=== PATIENT | female | born 1970 | race Caucasian/White ===

== ENCOUNTER 2016-12-12 03:05 | Emergency (ER) | payer OTHER ==
[2016-12-12] MEDS ORDERED: KETOROLAC 60 MG/2 ML VIAL ONE (04:24)
[2016-12-12] MEDS ORDERED: ONDANSETRON ODT 4 MG TABLET ONE (04:24)
[2016-12-12] MEDS ORDERED: ACETAMINOPHEN 325 MG TABLET PO ONE (04:24)
[2016-12-12] MEDS ORDERED: ONDANSETRON ODT 4 MG Prepack 2 TL ONE (05:33)
[2016-12-12] MEDS ORDERED: oxyCODONE/ACET 5/325 Prepack 4 PO ONE (05:33)
== END 2016-12-12 05:45 | disposition home or self-care (01) ==
DX: S06.0X0A Concussion without loss of consciousness, initial encounter (principal); S00.93XA Contusion of unspecified part of head, initial encounter; W20.8XXA Other cause of strike by thrown, projected or falling object, initial encounter; Y92.89 Other specified places as the place of occurrence of the external cause; Y99.0 Civilian activity done for income or pay; G35 Multiple sclerosis
CPT/HCPCS: 1040M; 70450; 96372; 99283; 99284; A9270; Q0162

== ENCOUNTER 2019-02-02 04:56 | Emergency (ER) | payer MEDICAID ==
[2019-02-02] MEDS ORDERED: KETOROLAC 30 MG/ML VIAL IVP STA (05:16)
[2019-02-02] MEDS ORDERED: SODIUM CHLORIDE 0.9% 1,000 ML IV ONE (05:16)
[2019-02-02] MEDS ORDERED: ONDANSETRON 4 MG/2 ML VIAL IVP STA (05:16)
--- NOTE | 2019-02-02 05:21 | ED Physician Documentation ---
PD HPI ABD PAIN - Stated complaint Stated Complaint: ABD PX - Chief complaint Chief Complaint: Abd Pain - History obtained from History obtained from: Patient - History of Present Illness Timing - onset: Last night Timing - duration: Hours (6) Timing - details: Intermittant Pain level max: 10 Pain level now: 4 Quality: Aching, Pain Location: Other (R flank) Improved by: Meds (motrin). No: Eating, Laying still, Vomiting, BM Worsened by: No: Eating, Moving, Breathing, Position, Palpation Associated symptoms: No: Fever, Nausea, Vomiting, Hematemesis, Diarrhea, Constipation, Melena, Hematochezia, Dysuria, Hematuria Similar symptoms before: Diagnosis (kidney stones) Recently seen: Not recently seen Review of Systems Ten Systems: 10 systems reviewed and negative Constitutional: denies: Fever, Chills Ears: denies: Ear pain Nose: denies: Rhinorrhea / runny nose, Congestion Throat: denies: Sore throat Cardiac: denies: Chest pain / pressure Respiratory: denies: Cough, Wheezing GI: denies: Vomiting, Diarrhea : denies: Dysuria Skin: denies: Rash Musculoskeletal: denies: Neck pain, Back pain Neurologic: denies: Headache PD PAST MEDICAL HISTORY - Past Medical History Cardiovascular: Hypertension Psych: Anxiety, Panic attacks - Past Surgical History Past Surgical History: Yes - Present Medications Home Medications: Ambulatory Orders Medication Instructions Recorded Confirmed Lisinopril [Zestril] 5 mg PO ONCE 09/04/13 09/04/13 hydroCHLOROthiazide [Hydrodiuril] 25 mg PO ONCE 09/04/13 09/04/13 Ondansetron Odt [Zofran] 4 mg TL Q6H PRN #10 tablet 02/02/19 - Allergies Allergies/Adverse Reactions: Allergies Allergy/AdvReac Type Severity Reaction Status Date / Time No Known Drug Allergies Allergy Verified 02/02/19 05:10 - Social History Does the pt smoke?: Yes Smoking Status: Current every day smoker Does the pt drink ETOH?: Yes Does the pt have substance abuse?: No - POLST Patient has POLST: No PD ED PE NORMAL - Vitals Vital signs reviewed: Yes - General General: Alert and oriented X 3, No acute distress, Well developed/nourished - HEENT HEENT: PERRL, Moist mucous membranes - Neck Neck: Supple, no meningeal sign - Cardiac Cardiac: RRR, Strong equal pulses - Respiratory Respiratory: No respiratory distress, Clear bilaterally - Abdomen Abdomen: Soft, Non tender, Non distended - Back Back: No CVA TTP, No spinal TTP - Derm Derm: Warm and dry, No rash - Extremities Extremities: No edema, No calf tenderness / cord - Neuro Neuro: Alert and oriented X 3 - Psych Psych: Normal mood, Normal affect Results - Vitals Vitals: Vital Signs - 24 hr 02/02/19 02/02/19 05:00 06:06 Temperature 36.1 C L Heart Rate 88 74 Respiratory 17 16 Rate Blood Pressure 162/97 H 129/80 O2 Saturation 99 100 Oxygen O2 Source Room air - Labs Labs: Laboratory Tests 02/02/19 02/02/19 02/02/19 05:06 05:30 05:30 WBC 10.9 H RBC 4.55 Hgb 13.2 Hct 39.4 MCV 86.6 MCH 29.0 MCHC 33.4 RDW 13.4 Plt Count 367 MPV 8.8 Neut # (Auto) 7.2 H Lymph # (Auto) 2.8 [place] # (Auto) 0.7 Eos # (Auto) 0.2 Baso # (Auto) 0.1 Absolute Nucleated RBC 0.00 Nucleated RBC % 0.0 Sodium 136 Potassium 3.8 Chloride 105 Carbon Dioxide 22 Anion Gap 9.0 BUN 13 Creatinine 0.6 Estimated GFR (MDRD) 106 Glucose 110 H Calcium 8.8 Total Bilirubin 0.8 AST 22 ALT 18 Alkaline Phosphatase 79 Total Protein 7.4 Albumin 4.0 Globulin 3.4 Albumin/Globulin Ratio 1.2 Lipase 44 Urine Color YELLOW Urine Clarity CLEAR Urine pH 5.5 Ur Specific [place] >=1.030 H Urine Protein NEGATIVE Urine Glucose (UA) NEGATIVE Urine Ketones NEGATIVE Urine Occult Blood NEGATIVE Urine Nitrite NEGATIVE Urine Bilirubin NEGATIVE Urine Urobilinogen 0.2 (NORMAL) Ur Leukocyte Esterase NEGATIVE Ur Microscopic Review NOT INDICATED Urine Culture Comments NOT INDICATED - Rads (name of study) CT abd/pelvis Radiology: Prelim report reviewed, EMP read contemporaneously, See rad report (Nonobstructing bilateral renal stones. 2. No ureteral stone or obstructive uropathy seen bilaterally. 3. Appendix appears normal. ) PD MEDICAL DECISION MAKING - ED course Complexity details: reviewed results, re-evaluated patient, considered differential, d/w patient ED course: 48-year-old female with right flank pain of unclear etiology. She did have some tenderness on the skin and did describe it as a burning, possible early shingles? She declines acyclovir or valacyclovir at this time. She also states that sometimes she develops similar burning pain with her MS. Declines pain medication for home. No acute findings on CT, laboratory testing or urinalysis. Patient counseled regarding signs and symptoms for which I believe and urgent re-evaluation would be necessary. Patient with good understanding of and agreement to plan and is comfortable going home at this time This document was made in part using voice recognition software. While efforts are made to proofread this document, sound alike and grammatical errors may occur. Departure - Departure Disposition: Home, Self Care Clinical Impression: Flank pain Condition: Good Instructions: ED Abdominal Pain Unkn Cause Follow-Up: Kami Perrin ARNP [Primary Care Provider] - Within 1 week Prescriptions: Ondansetron Odt [Zofran] 4 mg TL Q6H PRN #10 tablet PRN Reason: Nausea / Vomiting Comments: The cause of your symptoms is unclear today. It could be that you did pass a small kidney stone. It could also be early symptomatology of something such as shingles. Return if you worsen. Follow-up with your doctor for further care. Discharge Date/Time: 02/02/19 06:40
[2019-02-02 05:51] LABS: BILIRUBIN,URINE NEGATIVE (NEGATIVE); GLUCOSE, URINE (UA) NEGATIVE (NEGATIVE); KETONES,URINE (UA) NEGATIVE (NEGATIVE); LEUKOCYTE ESTERASE, URINE NEGATIVE (NEGATIVE); NITRITE,URINE NEGATIVE (NEGATIVE); OCCULT BLOOD,URINE NEGATIVE (NEGATIVE); PH,URINE 5.5 PH (5.0-7.5); PROTEIN,URINE NEGATIVE (NEGATIVE); UROBILINOGEN,URINE 0.2 (NORMAL) E.U./dL (NORMAL)
[2019-02-02 05:53] LABS: BASOPHILS # (AUTO) 0.1 10^3/uL (0.0-0.1); BASOPHILS % (AUTO) 0.8 %; EOSINOPHILS # (AUTO) 0.2 10^3/uL (0.0-0.7); HGB - HEMOGLOBIN 13.2 g/dL (12.0-16.0); LYMPHOCYTES # (AUTO) 2.8 10^3/uL (1.5-3.5); LYMPHOCYTES % (AUTO) 25.7 %; MEAN CORPUSCULAR HGB CONC 33.4 g/dL (32.0-36.0); MEAN CORPUSCULAR VOLUME 86.6 fL (81.0-99.0); MEAN PLATELET VOLUME 8.8 fL (7.9-10.8); MONOCYTES # (AUTO) 0.7 10^3/uL (0.0-1.0); NEUTROPHILS # (AUTO) 7.2 10^3/uL (1.5-6.6); NEUTROPHILS % (AUTO) 65.5 %; PLT - PLATELET COUNT 367 10^3/uL (130-450); RED BLOOD COUNT 4.55 10^6/uL (4.20-5.40); RED CELL DISTRIBUTION WIDTH 13.4 % (12.0-15.0); WHITE BLOOD COUNT 10.9 x10^3/uL (4.8-10.8)
[2019-02-02 05:54] LABS: CLARITY,URINE CLEAR (CLEAR)
[2019-02-02 06:08] VITALS: BP 129/80
[2019-02-02 06:08] LABS: ALBUMIN/GLOBULIN RATIO 1.2 (1.0-2.2); BILIRUBIN,TOTAL 0.8 mg/dL (0.2-1.0); CALCIUM 8.8 mg/dL (8.5-10.3); CREATININE 0.6 mg/dL (0.4-1.0); TOTAL PROTEIN 7.4 g/dL (6.7-8.2)
--- NOTE | 2019-02-02 06:16 | CT Report ---
Reason: R flank pain, h/o renal stones Procedure Date: 02/02/2019 Accession Number: [id number] / [id number] Procedure: CT - Abdomen/Pelvis WO CPT Code: FULL RESULT: EXAM: CT ABDOMEN AND PELVIS (CT KUB) EXAM DATE: 02/02/2019 05:51 AM. CLINICAL HISTORY: R flank pain, h/o renal stones. COMPARISONS: None. TECHNIQUE: Routine axial helical CT imaging was performed through the abdomen and pelvis without IV contrast. Reconstructions: Coronal and sagittal. In accordance with CT protocol optimization, one or more of the following dose reduction techniques were utilized for this exam: automated exposure control, adjustment of mA and/or KV based on patient size, or use of iterative reconstructive technique. FINDINGS: Lung Bases: Unremarkable. Right Kidney/Ureter: Nonobstructing 5 mm stone in the kidney. No ureteral stone or obstructive uropathy seen. Left Kidney/Ureter: There are 2 nonobstructing stones in the kidney measuring up to 2 mm. No ureteral stone or obstructive uropathy seen. Other Solid Organs: Noncontrast images of the solid organs are grossly unremarkable. Gallbladder/Bile Ducts: Unremarkable. Peritoneal Cavity: No bowel obstruction seen. No diverticulitis. Moderate stool in the colon. No free air or free fluid. Umbilical hernia containing fat. No lymphadenopathy. Appendix appears normal. Pelvic Organs: No bladder stones or wall thickening. Noncontrast images of the visualized pelvic organs are unremarkable. Vasculature: Unremarkable. Other: Degenerative changes in the spine with grade 1 degenerative spondylolisthesis at L4-L5. IMPRESSION: 1. Nonobstructing bilateral renal stones. 2. No ureteral stone or obstructive uropathy seen bilaterally. 3. Appendix appears normal. RADIA
== END 2019-02-02 06:40 | disposition home or self-care (01) ==
LOC: ED 04:56
DX: R10.31 Right lower quadrant pain (principal); N20.0 Calculus of kidney; I10 Essential (primary) hypertension; F17.200 Nicotine dependence, unspecified, uncomplicated
CPT/HCPCS: 36415; 74176; 80053; 81001; 81003; 83690; 85025; 87086; 96361; 96374; 96375; 99283

== ENCOUNTER 2019-05-21 14:04 | Emergency (ER) | payer MEDICAID ==
[2019-05-21] MEDS ORDERED: ONDANSETRON 4 MG/2 ML VIAL IVP STA (14:22)
[2019-05-21] MEDS ORDERED: KETOROLAC 30 MG/ML VIAL IVP STA (14:22)
--- NOTE | 2019-05-21 14:28 | ED Physician Documentation ---
PD HPI ABD PAIN - Stated complaint Stated Complaint: SIDE PX - Chief complaint Chief Complaint: Abd Pain - History obtained from History obtained from: Patient - History of Present Illness Timing - onset: Other (48-year-old woman with history of recurrent renal colic, never requiring intervention has had 3 days of right abdominal and flank pain similar to prior renal colic which was worse today associated with nausea. Feels like prior renal colic. No fevers. No gross hematuria.) Review of Systems Ten Systems: 10 systems reviewed and negative Constitutional: denies: Fever, Chills Respiratory: denies: Dyspnea, Cough GI: reports: Abdominal Pain, Nausea. denies: Vomiting, Diarrhea PD PAST MEDICAL HISTORY - Past Medical History Cardiovascular: Hypertension Psych: Anxiety, Panic attacks - Past Surgical History Past Surgical History: Yes - Present Medications Home Medications: Ambulatory Orders Medication Instructions Recorded Confirmed Lisinopril [Zestril] 5 mg PO ONCE 09/04/13 09/04/13 hydroCHLOROthiazide [Hydrodiuril] 25 mg PO ONCE 09/04/13 09/04/13 Ondansetron Odt [Zofran] 4 mg TL Q6H PRN #10 tablet 02/02/19 Ibuprofen [Motrin] 800 mg PO Q8H PRN #30 tablet 05/21/19 Oxycodone HCl/Acetaminophen 1 - 2 each PO Q6H PRN #14 tablet 05/21/19 [Percocet 5-325 mg Tablet] Tamsulosin [Flomax] 0.4 mg PO DAILY #14 capsule 05/21/19 - Allergies Allergies/Adverse Reactions: Allergies Allergy/AdvReac Type Severity Reaction Status Date / Time No Known Drug Allergies Allergy Verified 02/02/19 05:10 - Social History Does the pt smoke?: Yes Smoking Status: Current every day smoker Does the pt drink ETOH?: Yes Does the pt have substance abuse?: No - POLST Patient has POLST: No PD ED PE NORMAL - Vitals Vital signs reviewed: Yes - General General: Alert and oriented X 3, Other (Appears uncomfortable) - Abdomen Abdomen: Normal bowel sounds, Soft, Non tender - Extremities Extremities: No edema, No calf tenderness / cord - Neuro Neuro: Alert and oriented X 3, Normal speech Results - Vitals Vitals: Vital Signs - 24 hr 07/07/19 07/07/19 07/07/19 14:08 14:20 16:10 Temperature 36.9 C 36.7 C Heart Rate 97 86 68 Respiratory 18 17 20 Rate Blood Pressure 185/105 H 136/110 H 153/103 H O2 Saturation 98 99 95 Oxygen O2 Source Room air - Labs Labs: Laboratory Tests 05/21/19 05/21/19 05/21/19 14:30 14:30 15:50 WBC 12.9 H RBC 4.54 Hgb 13.0 Hct 40.5 MCV 89.2 MCH 28.6 MCHC 32.1 RDW 12.7 Plt Count 379 MPV 10.0 Neut # (Auto) 9.0 H Lymph # (Auto) 3.1 [place] # (Auto) 0.7 Eos # (Auto) 0.1 Baso # (Auto) 0.0 Absolute Nucleated RBC 0.00 Nucleated RBC % 0.0 Sodium 139 Potassium 3.5 Chloride 103 Carbon Dioxide 23 Anion Gap 13.0 BUN 15 Creatinine 0.7 Estimated GFR (MDRD) 89 Glucose 113 H Calcium 9.7 Total Bilirubin 1.0 AST 19 ALT 21 Alkaline Phosphatase 84 Total Protein 7.8 Albumin 4.4 Globulin 3.4 Albumin/Globulin Ratio 1.3 Lipase 28 Urine Color YELLOW Urine Clarity CLEAR Urine pH 6.0 Ur Specific [place] <=1.005 Urine Protein NEGATIVE Urine Glucose (UA) NEGATIVE Urine Ketones NEGATIVE Urine Occult Blood NEGATIVE Urine Nitrite NEGATIVE Urine Bilirubin NEGATIVE Urine Urobilinogen 0.2 (NORMAL) Ur Leukocyte Esterase NEGATIVE Ur Microscopic Review NOT INDICATED Urine Culture Comments NOT INDICATED PD MEDICAL DECISION MAKING - ED course Complexity details: reviewed old records (She had an unrelated visit in January of this year with a CT of the abdomen and pelvis noting bilateral renal calculi, 5 mm one on the right.) ED course: 48-year-old woman presents with renal colic. She had recent imaging proving the diagnosis. Labs are reassuring. She did not want any narcotics here as she was driving so pain was controlled with Toradol pending a trip to the pharmacy. Departure - Departure Disposition: 01 Home, Self Care Clinical Impression: Renal colic Condition: Good Record reviewed to determine appropriate education?: Yes Health Concerns: renal colic Plan of Treatment: Do not drink or drive while taking narcotic pain medication. Note that many narcotic pain relievers also contain Tylenol/acetaminophen. Please ensure that your total dose of acetaminophen from all sources does not exceed 3 g (3000 mg) per day. You may get constipated while on this medication. Take a stool softener such as Colace twice a day while you are on it. Also add an [id number]-[id number] laxative such as senna or MiraLAX on any day that you do not have a bowel movement. If you received a narcotic pain medication or sedative while in the emergency department, do not drive for the next 24 hours. Instructions: ED Stone Renal W Colic Follow-Up: Noah Sweeney MD [Physician No Access] - Prescriptions: Ibuprofen [Motrin] 800 mg PO Q8H PRN #30 tablet PRN Reason: PAIN &/OR FEVER Oxycodone HCl/Acetaminophen [Percocet 5-325 mg Tablet] 1 - 2 each PO Q6H PRN #14 tablet PRN Reason: pain Tamsulosin [Flomax] 0.4 mg PO DAILY #14 capsule Discharge Date/Time: 05/21/19 16:10
[2019-05-21 15:10] LABS: BASOPHILS % (AUTO) 0.3 %; EOSINOPHILS # (AUTO) 0.1 10^3/uL (0.0-0.7); EOSINOPHILS % (AUTO) 0.7 %; LYMPHOCYTES # (AUTO) 3.1 10^3/uL (1.5-3.5); LYMPHOCYTES % (AUTO) 23.8 %; MEAN CORPUSCULAR HEMOGLOBIN 28.6 pg (27.0-31.0); MEAN CORPUSCULAR HGB CONC 32.1 g/dL (32.0-36.0); MEAN CORPUSCULAR VOLUME 89.2 fL (81.0-99.0); MONOCYTES # (AUTO) 0.7 10^3/uL (0.0-1.0); MONOCYTES % (AUTO) 5.2 %; NEUTROPHILS % (AUTO) 69.6 %; PLT - PLATELET COUNT 379 10^3/uL (130-450); RED BLOOD COUNT 4.54 10^6/uL (4.20-5.40); RED CELL DISTRIBUTION WIDTH 12.7 % (12.0-15.0); WHITE BLOOD COUNT 12.9 x10^3/uL (4.8-10.8)
[2019-05-21 15:25] LABS: ALBUMIN 4.4 g/dL (3.2-5.5); ALBUMIN/GLOBULIN RATIO 1.3 (1.0-2.2); CALCIUM 9.7 mg/dL (8.5-10.3); CREATININE 0.7 mg/dL (0.4-1.0); TOTAL PROTEIN 7.8 g/dL (6.7-8.2)
[2019-05-21 15:57] LABS: BILIRUBIN,URINE NEGATIVE (NEGATIVE); GLUCOSE, URINE (UA) NEGATIVE (NEGATIVE); KETONES,URINE (UA) NEGATIVE (NEGATIVE); LEUKOCYTE ESTERASE, URINE NEGATIVE (NEGATIVE); NITRITE,URINE NEGATIVE (NEGATIVE); OCCULT BLOOD,URINE NEGATIVE (NEGATIVE); PROTEIN,URINE NEGATIVE (NEGATIVE); UROBILINOGEN,URINE 0.2 (NORMAL) E.U./dL (NORMAL)
[2019-05-21 15:58] LABS: CLARITY,URINE CLEAR (CLEAR)
[2019-05-21 16:11] VITALS: BP 153/103
== END 2019-05-21 16:10 | disposition home or self-care (01) ==
LOC: ED 14:04
DX: N23 Unspecified renal colic (principal); I10 Essential (primary) hypertension; F17.200 Nicotine dependence, unspecified, uncomplicated
CPT/HCPCS: 36415; 80053; 81001; 81003; 83690; 85025; 87086; 96374; 99283; 99284

== ENCOUNTER 2020-10-06 18:39 | Emergency (ER) | payer MEDICAID ==
--- NOTE | 2020-10-06 19:10 | ED Physician Documentation ---
PD HPI UPPER EXT INJURY - Stated complaint Stated Complaint: LT ARM INJURY - Chief complaint Chief Complaint: Trauma Ext - History obtained from History obtained from: Patient - History of Present Illness Location: Left, Arm Type of injury: Fall Where injury occurred: Home Timing - onset: How many hours ago (2) Timing - duration: Hours (2) Timing - details: Abrupt onset Pain level max: 8 Pain level now: 8 Improved by: Rest, Ice, Immobilization Worsened by: Moving, Palpating Associated symptoms: No: Weakness, Numbness, Tingling, Swelling Recently seen: Not recently seen - Additonal information Additional information: 49-year-old female states that she was dusting when she slipped backwards off of her stepstool. She reached with her left arm and grabbed a light fixture, causing her left arm to twist. Has been having pain in the entire left arm since that time. Has not taken anything for pain. She is right-handed. Review of Systems Constitutional: denies: Fever, Chills Ears: denies: Ear pain Nose: denies: Rhinorrhea / runny nose, Congestion Respiratory: denies: Cough GI: denies: Nausea, Vomiting, Diarrhea Skin: denies: Rash Musculoskeletal: denies: Neck pain, Back pain Neurologic: denies: Syncope, Head injury PD PAST MEDICAL HISTORY - Past Medical History Past Medical History: Yes Cardiovascular: Hypertension : Kidney stones Psych: Anxiety, Panic attacks - Past Surgical History Past Surgical History: Yes - Present Medications Home Medications: Ambulatory Orders Medication Instructions Recorded Confirmed hydroCHLOROthiazide [Hydrodiuril] 25 mg PO ONCE 09/04/13 09/04/13 lisinopriL [Zestril] 5 mg PO ONCE 09/04/13 09/04/13 Ondansetron Odt [Zofran] 4 mg TL Q6H PRN #10 tablet 02/02/19 Ibuprofen [Motrin] 800 mg PO Q8H PRN #30 tablet 05/21/19 Oxycodone HCl/Acetaminophen 1 - 2 each PO Q6H PRN #14 tablet 05/21/19 [Percocet 5-325 mg Tablet] Tamsulosin [Flomax] 0.4 mg PO DAILY #14 capsule 05/21/19 Cyclobenzaprine [Flexeril] 10 mg PO TID PRN #20 tablet 10/06/20 Ibuprofen [Motrin] 800 mg PO Q8H PRN #30 tablet 10/06/20 - Allergies Allergies/Adverse Reactions: Allergies Allergy/AdvReac Type Severity Reaction Status Date / Time No Known Drug Allergies Allergy Verified 10/06/20 18:48 - Social History Does the pt smoke?: Yes Smoking Status: Current every day smoker Does the pt drink ETOH?: Yes Does the pt have substance abuse?: No - Immunizations Immunizations are current?: Yes - POLST Patient has POLST: No PD ED PE NORMAL - Vitals Vital signs reviewed: Yes - General General: Alert and oriented X 3, No acute distress - HEENT HEENT: Atraumatic, PERRL, Moist mucous membranes - Neck Neck: Supple, no meningeal sign, No bony TTP - Cardiac Cardiac: RRR - Respiratory Respiratory: No respiratory distress, Clear bilaterally - Back Back: No spinal TTP - Extremities Extremities: No deformity, Other (L - arm - mild diffuse TTP over the forearm, no pain with pronation or supination. increased TTP over the humerus, midshaft. NVI. no deformity of the glenohumeral joint. ) Results - Vitals Vitals: Vital Signs - 24 hr 10/06/20 10/06/20 18:48 20:29 Temperature 36 C L 37 C Heart Rate 102 H 80 Respiratory 18 20 Rate Blood Pressure 167/98 H 149/77 H O2 Saturation 100 97 Oxygen O2 Source Room air - Rads (name of study) L humerus xray Radiology: Prelim report reviewed, EMP read contemporaneously, See rad report L forearm xay Radiology: Prelim report reviewed, EMP read contemporaneously, See rad report PD MEDICAL DECISION MAKING - ED course Complexity details: reviewed results, re-evaluated patient, considered differential, d/w patient ED course: No acute findings on x-rays. Appears to be muscular strain. No evidence of fractures or dislocations. Placed in a sling for comfort. Patient request Eric bandage for compression as well. She will remove this within 12 hours. We will have her gently move her arm over the next few days to prevent frozen shoulder. Patient counseled regarding signs and symptoms for which I believe and urgent re-evaluation would be necessary. Patient with good understanding of and agreement to plan and is comfortable going home at this time This document was made in part using voice recognition software. While efforts are made to proofread this document, sound alike and grammatical errors may [email or web address] price Departure - Departure Disposition: 01 Home, Self Care Clinical Impression: Strain of upper arm, left Qualifiers: Encounter type: initial encounter Qualified Code(s): S46.912A - Strain of unspecified muscle, fascia and tendon at shoulder and upper arm level, left arm, initial encounter Condition: Good Instructions: ED Strain Muscle Ext Follow-Up: Kami Perrni ARNP [Primary Care Provider] - Within 1 week Prescriptions: Cyclobenzaprine [Flexeril] 10 mg PO TID PRN #20 tablet PRN Reason: Spasms Ibuprofen [Motrin] 800 mg PO Q8H PRN #30 tablet PRN Reason: PAIN &/OR FEVER Comments: Continue to gently move your arm and shoulder. Will be very sore for the next few days. Do not wear the Eric wrap for longer than 12 hours at a time. Return if you worsen. Do not drive or operate heavy machinery while taking the Flexeril. Discharge Date/Time: 10/06/20 20:44
--- NOTE | 2020-10-06 19:58 | XRAY Report ---
PROCEDURE: Forearm LT INDICATIONS: fall, L arm pain TECHNIQUE: 2 views of the forearm were acquired. COMPARISON: None FINDINGS: Bones: No fractures or dislocations. No suspicious bony lesions. Soft tissues: No suspicious soft tissue calcifications or masses. IMPRESSION: Normal right forearm Reviewed by: Jose Thomas on 10/06/2020 7:57 PM [facility] Approved by: Jose Thomas on 10/06/2020 7:57 PM [facility] Station ID: [id number]
--- NOTE | 2020-10-06 19:59 | XRAY Report ---
PROCEDURE: Humerus LT INDICATIONS: fall, L arm pain TECHNIQUE: 3 views of the humerus were acquired. COMPARISON: None FINDINGS: Bones: No fractures or dislocations. No suspicious bony lesions. Soft tissues: No suspicious soft tissue calcifications. IMPRESSION: Normal left humerus Reviewed by: Jose Thomas on 10/06/2020 7:58 PM [facility] Approved by: Jose Thomas on 10/06/2020 7:58 PM [facility] Station ID: [id number]
[2020-10-06 20:30] VITALS: BP 149/77
[2020-10-06] MEDS ORDERED: IBUPROFEN 800 MG TABLET PO STA (20:35)
== END 2020-10-06 20:44 | disposition home or self-care (01) ==
LOC: ED 18:39
DX: S46.912A Strain of unspecified muscle, fascia and tendon at shoulder and upper arm level, left arm, initial encounter (principal); M79.632 Pain in left forearm; W11.XXXA Fall on and from ladder, initial encounter; X50.1XXA Overexertion from prolonged static or awkward postures, initial encounter; Y93.E9 Activity, other interior property and clothing maintenance; Y92.009 Unspecified place in unspecified non-institutional (private) residence as the place of occurrence of the external cause; I10 Essential (primary) hypertension; F17.200 Nicotine dependence, unspecified, uncomplicated
CPT/HCPCS: 73060; 73090; 99283; 99284; A9270